=== PATIENT | female | born 1990 | race Caucasian/White ===

== ENCOUNTER 2021-11-11 21:38 | Observation (INO) | payer OTHER ==
[2021-11-11 22:30] LABS: ANION GAP 13.4 mEq/L (7-13); CHLORIDE,CL 103 mmol/L (98-107); SODIUM,NA 139 mmol/L (136-145)
[2021-11-11] MEDS ORDERED: Cyclobenzaprine 10 MG Tab PO PRN (22:50)
[2021-11-11] MEDS ORDERED: Acetaminophen 325 MG Tab PO PRN (22:58)
[2021-11-11] MEDS: Lactated Ringers 1,000 ML IV SCH (23:30)
[2021-11-11] MEDS ORDERED: hydrOXYzine HCl 25 MG Tab PO SCH (23:34)
[2021-11-12 07:11] LABS: ANION GAP 14.2 mEq/L (7-13); CHLORIDE,CL 106 mmol/L (98-107); SODIUM,NA 140 mmol/L (136-145)
[2021-11-12] MEDS: Lactated Ringers 1,000 ML IV SCH (07:22)
[2021-11-12] MEDS ORDERED: Sodium Chloride 0.9% 10 ML Syringe FLUSH SCH (09:00)
[2021-11-12] MEDS: Potassium Chloride 10 MEQ in Premix Bag 1 BAG IV SCH ×2 (10:53→13:49)
[2021-11-12] MEDS ORDERED: Potassium Chloride 10 MEQ Tab.ER PO ONE (11:24)
[2021-11-12] MEDS ORDERED: Potassium Chloride 10 MEQ Tab.ER PO SCH (13:00)
[2021-11-12] MEDS ORDERED: hydrOXYzine HCl 25 MG Tab PO SCH (21:00)
== END 2021-11-12 12:40 | disposition home or self-care (01) ==
LOC: DL.OBCHECK 21:38 → DL.MS 23:15
PROVIDERS: ADMIT Family Medicine; ATTEND Family Medicine
DX: O99.355 Diseases of the nervous system complicating the puerperium (principal); R51.9 Headache, unspecified; O16.3 Unspecified maternal hypertension, third trimester; H53.9 Unspecified visual disturbance
CPT/HCPCS: 36415; 80053; 82570; 83615; 84156; 84550; 85027; A9270; J3480; J7120; G0378

== ENCOUNTER 2021-11-16 02:50 | Inpatient (IN) | payer OTHER ==
[2021-11-16] MEDS ORDERED: Methylergonovine 0.2 MG/1 ML Amp IM PRN ×2 (07:21→22:36)
[2021-11-16] MEDS ORDERED: Misoprostol 400 MCG (4 X 100 MCG TAB) RECTAL PRN ×2 (07:21→22:36)
[2021-11-16] MEDS ORDERED: Carboprost Tromethamine 250 MCG/1 ML Amp IM PRN ×2 (07:21→22:36)
[2021-11-16] MEDS ORDERED: Lactated Ringers 1,000 ML IV ONE ×2 (07:21→08:42)
[2021-11-16] MEDS ORDERED: ePHEDrine 50 MG/ML SDV IVPUSH PRN ×2 (07:21→22:36)
[2021-11-16] MEDS ORDERED: Lidocaine 1% 30 ML SDV INJECT PRN (07:21)
[2021-11-16] MEDS ORDERED: Acetaminophen 325 MG Tab PO PRN ×2 (07:21→22:36)
[2021-11-16] MEDS ORDERED: fentaNYL 100 MCG/2 ML SDV IVPUSH PRN (07:21)
[2021-11-16] MEDS ORDERED: Naloxone 2 MG/2 ML Syringe IVPUSH PRN ×2 (07:21→22:36)
[2021-11-16] MEDS ORDERED: Tranexamic Acid 1,000 MG in Sodium Chloride 0.9% 100 ML IV PRN ×2 (07:21→22:36)
[2021-11-16] MEDS ORDERED: Promethazine 25 MG/ML SDV IM PRN (07:21)
[2021-11-16] MEDS ORDERED: Ondansetron 4 MG/2 ML SDV IVPUSH PRN ×3 (07:21→22:36)
[2021-11-16] MEDS ORDERED: Nalbuphine 10 MG/1 ML Vial IM ONE (07:25)
[2021-11-16] MEDS ORDERED: Oxytocin/Normal Saline 30 UNIT/500 ML BAG IV SCH ×2 (07:30→20:45)
[2021-11-16] MEDS ORDERED: Lactated Ringers 500 ML IV SCH ×2 (07:30)
[2021-11-16 08:20] LABS: ANION GAP 16.8 mEq/L (7-13); CHLORIDE,CL 103 mmol/L (98-107); SODIUM,NA 138 mmol/L (136-145)
[2021-11-16] MEDS ORDERED: Ketorolac 30 MG/ML SDV IVPUSH ONE (08:42)
[2021-11-16] MEDS ORDERED: Morphine PF 1 MG/ML Amp ONE (08:42)
[2021-11-16] MEDS ORDERED: Dexamethasone 4 MG/ML SDV IV ONE (08:42)
[2021-11-16] MEDS ORDERED: Ondansetron 4 MG/2 ML SDV IV ONE (08:42)
[2021-11-16] MEDS ORDERED: Sodium Bicarbonate 4.2% 2.5 MEQ/5 ML SDV IV ONE (08:42)
[2021-11-16] MEDS ORDERED: ePHEDrine 50 MG/ML SDV IV ONE (08:42)
[2021-11-16] MEDS ORDERED: Nalbuphine 10 MG/1 ML Vial ONE (12:29)
[2021-11-16] MEDS ORDERED: Oxytocin/Normal Saline 30 UNIT/500 ML BAG IV ONE (12:57)
[2021-11-16] MEDS ORDERED: ceFAZolin 2 GM in Premix Bag 1 BAG IV ONE (12:59)
[2021-11-16] MEDS: Lactated Ringers 1,000 ML IV SCH ×3 (14:15→17:10)
[2021-11-16] MEDS ORDERED: Sodium Chloride 0.9% 20 ML SDV ONE ×2 (14:30→19:00)
[2021-11-16] MEDS ORDERED: Sodium Bicarbonate 4.2% 2.5 MEQ/5 ML SDV ONE ×4 (14:30→19:11)
[2021-11-16] MEDS ORDERED: EPINEPHrine 1 MG/ML SDV ONE ×4 (14:30→19:11)
[2021-11-16] MEDS ORDERED: fentaNYL 100 MCG/2 ML SDV ITHECAL ONE ×2 (14:30→19:00)
[2021-11-16] MEDS ORDERED: fentaNYL 100 MCG/2 ML SDV ONE ×2 (14:32→19:11)
[2021-11-16] MEDS ORDERED: Oxytocin/Normal Saline 60 UNIT/1,000 ML BAG ONE (20:19)
[2021-11-16] MEDS ORDERED: Methylergonovine 0.2 MG Tab PO PRN (20:43)
[2021-11-16] MEDS ORDERED: Oxytocin 10 Units/1 ML SDV IM PRN (20:43)
[2021-11-16] MEDS ORDERED: Citric Acid/Sodium Citrate Solution 30 ML Cup PO ONE (20:43)
[2021-11-16] MEDS ORDERED: Lactated Ringers 1,000 ML IV SCH ×2 (20:45→22:45)
[2021-11-16] MEDS ORDERED: Sodium Chloride 0.9% 10 ML Syringe FLUSH SCH (21:00)
[2021-11-16] MEDS ORDERED: diphenhydrAMINE 50 MG/ML SDV IVPUSH PRN (22:36)
[2021-11-16] MEDS ORDERED: Ibuprofen 800 MG Tab PO PRN (22:36)
[2021-11-17] MEDS: Ketorolac 30 MG/ML SDV IVPUSH SCH ×3 (03:58→16:04)
[2021-11-17] MEDS: Ferrous Sulfate 325 MG Tab PO SCH ×2 (08:24→21:13)
[2021-11-17] MEDS: Simethicone 80 MG Tab.Chew PO SCH ×4 (08:24→21:14)
[2021-11-17] MEDS: Prenatal Multivitamin with Calcium/Folic Acid/Iron Tab PO SCH (08:24)
[2021-11-17] MEDS: Docusate Sodium 100 MG Cap PO PRN ×2 (08:24→21:14)
[2021-11-17] MEDS: Acetaminophen/oxyCODONE 325-5 MG Tab PO PRN ×2 (17:31→21:13)
[2021-11-18] MEDS: Ibuprofen 800 MG Tab PO PRN ×3 (00:33→17:16)
[2021-11-18] MEDS: Acetaminophen/oxyCODONE 325-5 MG Tab PO PRN ×4 (05:12→21:20)
[2021-11-18] MEDS: Prenatal Multivitamin with Calcium/Folic Acid/Iron Tab PO SCH (08:47)
[2021-11-18] MEDS: Docusate Sodium 100 MG Cap PO PRN ×2 (08:47→21:19)
[2021-11-18] MEDS: Simethicone 80 MG Tab.Chew PO SCH ×4 (08:47→21:19)
[2021-11-18] MEDS: Ferrous Sulfate 325 MG Tab PO SCH ×2 (08:47→21:19)
[2021-11-19] MEDS: Acetaminophen/oxyCODONE 325-5 MG Tab PO PRN ×2 (00:37→06:25)
[2021-11-19] MEDS: Ibuprofen 800 MG Tab PO PRN (00:38)
== END 2021-11-19 08:43 | disposition home or self-care (01) | DRG 788 ==
LOC: DL.OBCHECK 02:50 → OBSVTOIN 03:47 → DL.OB 03:47
PROVIDERS: ADMIT Family Medicine; ATTEND Family Medicine
PROC: 10D00Z1 Extraction of Products of Conception, Low, Open Approach (ICD-10-PCS; principal; 2021-11-16)
PROC: 3E0R3BZ Introduction of Anesthetic Agent into Spinal Canal, Percutaneous Approach (ICD-10-PCS; 2021-11-16)
DX: O34.13 Maternal care for benign tumor of corpus uteri, third trimester (principal); D25.9 Leiomyoma of uterus, unspecified; Z3A.39 39 weeks gestation of pregnancy; Z37.0 Single live birth; O67.9 Intrapartum hemorrhage, unspecified; O99.814 Abnormal glucose complicating childbirth; Z20.822 Contact with and (suspected) exposure to COVID-19; O99.892 Other specified diseases and conditions complicating childbirth; M54.9 Dorsalgia, unspecified
CPT/HCPCS: 36415; 51701; 51702; 80048; 82570; 84156; 84450; 84460; 85027; 86850; 86900; 86901; A9270-GY; J0171; J0690; J1100; J1885; J2274; J2300; J2405; J2590; J3010; J7120; U0002

== ENCOUNTER 2021-11-23 03:28 | Emergency (ER) | payer OTHER ==
[2021-11-23] MEDS: Sodium Chloride 0.9% 10 ML Syringe FLUSH PRN (03:40)
[2021-11-23] MEDS: Lactated Ringers 1,000 ML IV ONE (03:45)
[2021-11-23 04:09] LABS: ANION GAP 12.4 mEq/L (7-13); CHLORIDE,CL 105 mmol/L (98-107); SODIUM,NA 141 mmol/L (136-145)
[2021-11-23] MEDS: Sodium Chloride 0.9% 1,000 ML IV ONE (04:40)
[2021-11-23] MEDS: Sodium Chloride 0.9% 500 ML IV ONE (05:35)
[2021-11-23] MEDS: ceFAZolin 2 GM in Premix Bag 1 BAG IV ONE (06:26)
[2021-11-23] MEDS: Misoprostol 50 MCG (1/2 of 100 MCG) Tab ONE (06:28)
[2021-11-23] MEDS: Misoprostol 100 MCG Tab PO ONE (06:48)
== END 2021-11-23 07:08 | disposition home or self-care (01) ==
LOC: DL.ED 03:28
DX: O72.1 Other immediate postpartum hemorrhage (principal)
CPT/HCPCS: 36415; 76857; 80053; 83605; 85025; 85610; 86140; 86850; 86900; 86901; 96365; 99284-25; A9270-GY; J0690; J7040; J7120

== ENCOUNTER 2023-08-28 09:59 | Inpatient (IN) | payer OTHER ==
[~2023-08-28 09:59] MED LIST: Citric Acid/Sodium Citrate Solution 30 ML Cup PO ONE; ceFAZolin 2 GM Vial IVPUSH ONE
[2023-08-28] MEDS ORDERED: Oxytocin 10 Units/1 ML SDV IM PRN (10:00)
[2023-08-28] MEDS ORDERED: Carboprost Tromethamine 250 MCG/1 ML Amp IM PRN ×2 (10:00→13:06)
[2023-08-28] MEDS ORDERED: Methylergonovine 0.2 MG Tab PO PRN (10:00)
[2023-08-28] MEDS ORDERED: Tranexamic Acid 1,000 MG in Sodium Chloride 0.9% 100 ML IV PRN ×2 (10:00→13:06)
[2023-08-28] MEDS ORDERED: Sodium Chloride 0.9% 10 ML Syringe FLUSH SCH (10:00)
[2023-08-28] MEDS ORDERED: Sodium Chloride 0.9% 10 ML Syringe FLUSH PRN (10:00)
[2023-08-28] MEDS ORDERED: Oxytocin/Normal Saline 30 UNIT/500 ML BAG IV SCH (10:00)
[2023-08-28] MEDS ORDERED: Lactated Ringers 1,000 ML IV SCH (10:00)
[2023-08-28] MEDS: Lactated Ringers 1,000 ML IV SCH ×4 (10:30→21:39)
[2023-08-28 10:35] LABS: BASOPHILS PERCENT AUTO 0.2 % (0.0-1.0); EOSINOPHILS PERCENT AUTO 0.6 % (1.0-3.0); HEMATOCRIT 37.4 % (37.0-47.0); HEMOGLOBIN 12.6 g/dL (12.0-16.0); LYMPHOCYTES PERCENT AUTO 21.7 % (20.5-50.1); MEAN CORPUSCULAR HEMOGLOBIN 28.7 pg (27.0-34.0); MEAN CORPUSCULAR HGB CONC 33.7 g/dL (33.0-35.0); MEAN CORPUSCULAR VOLUME 85.2 fL (80-100); MONOCYTES PERCENT AUTO 7.1 % (2-8); NEUTROPHILS PERCENT AUTO 70.4 % (42.2-75.2); PLATELET COUNT,PLT 181 10^3/uL (150-450); RED BLOOD CELL COUNT 4.39 10^6/uL (4.2-5.4); WHITE BLOOD CELL COUNT,WBC 8.1 10^3/uL (5.0-10.0)
[2023-08-28] MEDS ORDERED: Citric Acid/Sodium Citrate Solution 30 ML Cup ONE (11:14)
[2023-08-28] MEDS ORDERED: Ondansetron 4 MG/2 ML SDV ONE (11:43)
[2023-08-28] MEDS ORDERED: Dexamethasone 4 MG/ML SDV ONE (11:43)
[2023-08-28] MEDS ORDERED: Ketorolac 30 MG/ML SDV ONE (11:43)
[2023-08-28] MEDS ORDERED: Oxytocin 10 Units/1 ML SDV ONE (11:43)
[2023-08-28] MEDS ORDERED: ceFAZolin 2 GM Vial ONE (11:44)
[2023-08-28] MEDS ORDERED: Oxytocin/Normal Saline 30 UNIT/500 ML BAG ONE (11:46)
[2023-08-28] MEDS ORDERED: diphenhydrAMINE 50 MG/ML SDV IVPUSH PRN (13:06)
[2023-08-28] MEDS ORDERED: Acetaminophen 325 MG Tab PO PRN (13:06)
[2023-08-28] MEDS ORDERED: Naloxone 2 MG/2 ML Syringe IVPUSH PRN (13:06)
[2023-08-28] MEDS ORDERED: Misoprostol 400 MCG (4 X 100 MCG TAB) RECTAL PRN (13:06)
[2023-08-28] MEDS ORDERED: Ondansetron 4 MG/2 ML SDV IVPUSH PRN (13:06)
[2023-08-28] MEDS ORDERED: Acetaminophen/oxyCODONE 325-5 MG Tab PO PRN (13:06)
[2023-08-28] MEDS ORDERED: Methylergonovine 0.2 MG/1 ML Amp IM PRN (13:06)
[2023-08-28] MEDS ORDERED: ePHEDrine 50 MG/ML SDV IVPUSH PRN (13:06)
[2023-08-28] MEDS ORDERED: Ketorolac 30 MG/ML SDV IVPUSH SCH (13:15)
[2023-08-28] MEDS: Simethicone 80 MG Tab.Chew PO SCH ×2 (17:12→20:49)
[2023-08-28] MEDS: Ketorolac 30 MG/ML SDV IVPUSH SCH (18:00)
[2023-08-29] MEDS: Ketorolac 30 MG/ML SDV IVPUSH SCH ×2 (00:07→05:21)
[2023-08-29] MEDS: Lactated Ringers 1,000 ML IV SCH (05:30)
[2023-08-29 06:51] LABS: HEMATOCRIT 34.4 % (37.0-47.0); HEMOGLOBIN 11.2 g/dL (12.0-16.0); MEAN CORPUSCULAR HEMOGLOBIN 28.4 pg (27.0-34.0); MEAN CORPUSCULAR HGB CONC 32.6 g/dL (33.0-35.0); MEAN CORPUSCULAR VOLUME 87.3 fL (80-100); RED BLOOD CELL COUNT 3.94 10^6/uL (4.2-5.4); WHITE BLOOD CELL COUNT,WBC 11.4 10^3/uL (5.0-10.0)
[2023-08-29] MEDS: Simethicone 80 MG Tab.Chew PO SCH ×4 (09:16→21:01)
[2023-08-29] MEDS: Prenatal Multivitamin with Calcium/Folic Acid/Iron Tab PO SCH (09:16)
[2023-08-29] MEDS: Docusate Sodium 100 MG Cap PO PRN ×2 (11:45→21:01)
[2023-08-29] MEDS: Ibuprofen 800 MG Tab PO PRN ×2 (11:45→21:01)
[2023-08-29] MEDS: Acetaminophen/oxyCODONE 325-5 MG Tab PO PRN ×3 (12:49→21:01)
[2023-08-30] MEDS: Ibuprofen 800 MG Tab PO PRN (06:00)
[2023-08-30] MEDS: Prenatal Multivitamin with Calcium/Folic Acid/Iron Tab PO SCH (08:53)
[2023-08-30] MEDS: Docusate Sodium 100 MG Cap PO PRN (08:53)
[2023-08-30] MEDS: Simethicone 80 MG Tab.Chew PO SCH (10:05)
[2023-08-30] MEDS: Acetaminophen/oxyCODONE 325-5 MG Tab PO PRN (10:38)
== END 2023-08-30 10:45 | disposition home or self-care (01) | DRG 788 ==
LOC: DL.OB 09:59 → UNDOADMIN 09:59 → UNDOADMOB 13:05 → OBSVTOIN 13:05 → INTOOBSV 13:05 → DL.OB 13:05
PROVIDERS: ADMIT Family Medicine; ATTEND Family Medicine
PROC: 10D00Z1 Extraction of Products of Conception, Low, Open Approach (ICD-10-PCS; principal; 2023-08-28 12:00)
DX: O34.211 Maternal care for low transverse scar from previous cesarean delivery (principal); O99.214 Obesity complicating childbirth; O34.13 Maternal care for benign tumor of corpus uteri, third trimester; D25.9 Leiomyoma of uterus, unspecified; Z37.0 Single live birth; Z3A.39 39 weeks gestation of pregnancy
CPT/HCPCS: 36415; 59025; 85025; 85027; 86850; 86900; 86901; 94010; A9270-GY; J1885; J2590; J7120